=== PATIENT | male | born 1945 | race Hispanic/Latino ===

== ENCOUNTER → 2018-06-12 | Day surgery (SDC) | payer MEDICARE ==
[2018-06-11 09:13] LABS: BASOPHILS # (AUTO) 0.1 (0.0-0.1); EOSINOPHILS # (AUTO) 0.3 (0.0-0.4); EOSINOPHILS % 3.6 % (0.0-6.0); HEMATOCRIT 43.3 % (38.2-49.6); HEMOGLOBIN 14.5 g/dL (14.0-18.0); LYMPHOCYTES # (AUTO) 1.4 (1.0-3.2); LYMPHOCYTES % 18.1 % (18.0-39.1); MEAN CORPUSCULAR HEMOGLOBIN 30.3 pg (28-32); MEAN CORPUSCULAR HGB CONC 33.5 g/dL (31-35); MEAN CORPUSCULAR VOLUME 90.4 fL (81-99); MONOCYTES # (AUTO) 0.6 (0.2-0.8); MONOCYTES % 7.4 % (4.4-11.3); NEUTROPHILS # (AUTO) 5.4 (2.1-6.9); NEUTROPHILS % 69.5 % (38.7-80.0); PLATELET COUNT 242 x10e3/uL (140-360); RED BLOOD COUNT 4.79 x10e6/uL (4.3-5.7); RED CELL DISTRIBUTION WIDTH 13.2 % (11.7-14.4)
[2018-06-11 09:38] LABS: BLOOD UREA NITROGEN 13 mg/dL (7-26); BUN/CREATININE RATIO 13 (6-25); CALCIUM 9.8 mg/dL (8.4-10.2); CARBON DIOXIDE 24 mmol/L (22-29); CHLORIDE 104 mmol/L (98-107); EST GLOMERULAR FILTRATION RATE > 60 ML/MIN (60-); GLUCOSE 268 mg/dL (74-118); SODIUM 139 mmol/L (136-145)
--- NOTE | 2018-06-11 10:11 | Diagnostic Imaging Report ---
PROCEDURE: X-RAY CHEST, TWO VIEWS COMPARISON: None. INDICATIONS: PREOPERATIVE FOR STONE FINDINGS: LUNGS: No consolidations or edema. PLEURA: No effusions or pneumothorax. HEART & MEDIASTINUM: The heart is within normal size-limits. BONES & SOFT TISSUES: No acute findings. Degenerative changes of the spine. CONCLUSION: No acute thoracic abnormality. Misbah Alamo D.O. Dictated by: Misbah Alamo D.O. on 06/11/2018 at 10:20 Electronically approved by: Misbah Alamo D.O. on 06/11/2018 at 10:20
[~2018-06-12] MED LIST: AMLODIPINE BESY10 MG PO; ASPIR 8181 MG PO; ATORVASTATIN CA10 MG PO; BELLADONNA/OPIUM 60 MG SUPP PR ONE; CEFTRIAXONE SOD 1 GM VIAL ONE; FENTANYL CITRATE/PF 100MCG/2 ML INJ ONE; GABAPENTIN100 MG PO; IOPAMIDOL 610MG/1ML 300 MG/ML VIAL IV ONE; LIDOCAINE HCL 2% LOCAL INJ 5 ML SDV VIAL INJ ONE; LORATADINE10 MG PO; ONDANSETRON HCL INJ 2 MG/ML VIAL ONE; OXYBUTYNIN CHLO15 MG PO; PROPOFOL IV EMULSION 10 MG/ML 20 ML VIAL ONE; SEVOFLURANE INHAL SOLN 250 ML PEN BTL ONE; TYLENOL WITH C1 EACH PO; VITAMIN D250000 UNIT PO
--- OUTSIDE RECORDS SUMMARY | 2018-06-12 12:00 | XMS REPORT ---
[facility] Address Unknown Phone Unavailable Care Team Providers Care Woodyard Operator Name Role Phone CHARITO AQUINO Unavailable Unavailable Problems This patient has no known problems. Allergies, Adverse Reactions, Alerts This patient has no known allergies or adverse reactions. Medications This patient has no known medications. Results Test Description Test Time Test Comments Text Results Atomic Results Result Comments CHEST 2 VIEWS 2018-06-11 10:20:00 [place] [address] Patient Name: TESSIE FOFANA MR #: [id number] : 1945 Age/Sex: 72/M Req #: [id number] [facility] Physician: Ordered by: CHARITO AQUINO MD Report #: [id number] Location: OR Room/Bed: Procedure: [id number] DX/CHEST 2 VIEWS Exam Date: 06/11/18 Exam Time: 0850 REPORT STATUS: Signed PROCEDURE: X-RAY CHEST, TWO VIEWS COMPARISON: None. INDICATIONS: PREOPERATIVE FOR STONE FINDINGS: LUNGS: No consolidations or edema. PLEURA: No effusions or pneumothorax. HEART MEDIASTINUM: The heart is within normal size-limits. BONES SOFT TISSUES: No acute findings. Degenerative changes of the spine. CONCLUSION: No acute thoracic abnormality. Luis Alamo D.O. Dictated by: Luis Alamo D.O. on 06/11/2018 at 10:20 Electronically approved by: Luis Alamo D.O. on 06/11/2018 at 10:20 Dictated By: LUIS ALAMO DO 1020 Transcribed By: JUAN M on 06/11/18 1020 COPY TO: CHARITO AQUINO MD
[2018-06-12 13:30] VITALS: BP 139/79
--- NOTE | 2018-06-13 07:00 | Operative Report ---
DATE OF PROCEDURE: June 12, 2018 PREOPERATIVE DIAGNOSES 1. Left ureterolithiasis. 2. Left indwelling ureteral stent. PREOPERATIVE DIAGNOSES 1. Left ureterolithiasis. 2. Left indwelling ureteral stent. PROCEDURES PERFORMED 1. Cystourethroscopy with complicated removal of left indwelling ureteral stent (separately performed for the diagnosis of the stents done with separate scope). 2. Left ureteroscopy with stone manipulation and extraction (separately performed for the left ureterolithiasis). 3. Urological services for supervision and interpretation of ureteroscopy. 4. Interpretation of retrograde ureteropyelography. ANESTHESIA: General. COMPLICATIONS: None. CLINICAL SUMMARY: Preston Chacon is a 72-year old man who had obstructing left ureterolithiasis. He underwent ureteral stenting. He is brought to the operating today to remove his stent and hopefully render him stent-free and stone-free. He is aware of the risks of bleeding, infection, injury to adjacent structures, and need for additional procedures and elected to proceed. OPERATIVE PROCEDURE IN DETAIL: After the informed consent was verified, Preston Chacon was properly identified, taken to the operating room, and placed on the cystoscopy table in supine position. Anesthesia was uneventfully begun. The patient was then carefully and gently repositioned in dorsal lithotomy position with all pressure points well padded. His genitalia were prepared and draped in usual sterile fashion. The 22.5-[place] cystourethroscope sheath with visual obturator in place was atraumatically inserted into the patient's urethra and was guided down to the unremarkable urethra through the normal sphincteric region, through the prostate bed, and into the patient's bladder where panendoscopy revealed no suspicious mucosal lesions, no tumors, no stones, and no diverticulum. There was a stent emerging from the left ureteral orifice. A guidewire was then placed alongside the stent and guided at the level of the patient's kidneys. The stent was then grasped, completely removed and discarded. A semi-rigid ureteroscope was then brought up alongside the guidewire into the distal ureter where we identified a stone. A basket was utilized to align the stone in the longitudinal fashion and then the stone could be easily extracted without any trauma or resistance. Flexile ureteroscope was then brought up over the guidewire and guided at the level of the patient's kidney. 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 There were no tumors, no stones, and no diverticula. We carefully examined the ureter as we exited, and it did not exhibit any stones or strictures nor any sign of significant trauma following stone manipulation. The patient's bladder was then drained. Cystoscope was withdrawn. A belladonna and opium suppository was placed revealing a 30-gram prostate that was not smooth and non-fluctuant without any nodules. The patient was then uneventfully reversed from anesthesia and taken to recovery room in stable condition. There were no complications during the procedure. He patient tolerated the procedure well. Explicit postoperative instructions were given. We will plan on returning the patient back to the office for uroflowmetry and bladder ultrasonography. Of course, we will perform a metabolic stone workup and work on stone prevention in the future. Interpretation of retrograde ureteropyelography: Contrast was instilled in retrograde fashion on left hand side. The previous hydroureteronephrosis has resolved. The stone, which was previously present much higher, was now at the very distal left ureter. There was no extravasation. Calices were sharp and delicate. Unobstructed drainage was observed fluoroscopically at the end of case. Job#: [id number] RITA cc:Mayelin Bianchi MD
== END | disposition home or self-care (01) ==
LOC: OR 11:58
PROVIDERS: ATTEND Urology
DX: N20.1 Calculus of ureter (principal); Z46.6 Encounter for fitting and adjustment of urinary device; N28.89 Other specified disorders of kidney and ureter; N40.1 Benign prostatic hyperplasia with lower urinary tract symptoms; R35.1 Nocturia; N32.81 Overactive bladder; N39.41 Urge incontinence; N28.1 Cyst of kidney, acquired; R81 Glycosuria; I10 Essential (primary) hypertension; E11.9 Type 2 diabetes mellitus without complications; E66.01 Morbid (severe) obesity due to excess calories; I49.3 Ventricular premature depolarization; I44.4 Left anterior fascicular block; Z01.810 Encounter for preprocedural cardiovascular examination; Z01.812 Encounter for preprocedural laboratory examination; Z01.818 Encounter for other preprocedural examination; Z79.82 Long term (current) use of aspirin; Z79.84 Long term (current) use of oral hypoglycemic drugs; Z68.38 Body mass index [BMI] 38.0-38.9, adult
CPT/HCPCS: 36415 ×2; 52352; 71046; 74420; 80048; 82948; 85025; 88300; 93005; J0696; J2001; J2405; J2704; Q9967